=== PATIENT | male | born 1965 | race African-American/Black ===

== ENCOUNTER 2025-06-17 16:25 | Inpatient (IN) | payer MEDICARE, MEDICAID ==
[~2025-06-17] VITALS: Ht 185.4 cm; Wt 139.3 kg
[~2025-06-17 16:25] MED LIST: AMLO10TA80 MT; ASPI-1497 PO; FURO80TA87 MT; LIP40 MT; LOSA50TA41 MT; METF-414 MT; METO-396 MT; MONT-39 MT
[2025-06-17 17:09] LABS: BASOPHILS % 1.1 % (0.0-2.0); EOSINOPHILS % 3.5 % (0.0-5.0); HEMATOCRIT. 37.9 % (42.0-52.0); HEMOGLOBIN. 12.9 g/dL (14.0-18.0); LYMPHOCYTES % 26.3 % (20.0-50.0); MEAN PLATELET VOLUME 9.7 fl (7.4-10.4); MONOCYTES % 9.0 % (2.0-8.0); NEUTROPHILS % 60.1 % (40.0-76.0); PLATELET 152 x1000/uL (130-400); RED BLOOD CELL COUNT 4.15 mill/uL (4.7-6.1); RED CELL DISTRIBUTION WIDTH 14.7 % (11.6-14.6)
[2025-06-17 17:23] LABS: CREATININE 1.6 mg/dL (0.6-1.3); UREA NITROGEN BLOOD 13.0 mg/dL (9-23)
[2025-06-17 18:52] LABS: TROPONIN I HIGH SENSITIVITY 16 ng/L (3.0-53)
[2025-06-17 18:53] LABS: ASPARTATE AMINOTRANSFERASE 37 IU/L (<34); BILIRUBIN DIRECT 0.1 mg/dL (<=3.0); BILIRUBIN TOTAL 0.5 mg/dL (0.1-1.0); INR 0.9; PROTEIN TOTAL 7.8 g/dL (6.0-8.3)
[2025-06-17] MEDS: FUROSEMIDE 40MG/4ML VIAL IVP ONE (19:01)
[2025-06-17] MEDS: ENALAPRIL 2.5MG/2ML VIAL 2ML IV ONE (19:32)
[2025-06-17] MEDS: NITROGLYCERIN 0.4MG TABLET SL SL ONE (19:32)
[2025-06-17] MEDS ORDERED: AZITHROMYCIN 500MG/250ML 250 ML IV SCH (20:00)
[2025-06-17] MEDS ORDERED: CEFTRIAXONE 1GM/50ML 50 ML IV ONE (20:00)
[2025-06-17 20:28] LABS: CLARITY URINE CLEAR (CLEAR); COLOR URINE YELLOW (YELLOW); GLUCOSE URINE NEGATIVE (NEGATIVE); KETONES URINE NEGATIVE (NEGATIVE); LEUKOCYTE ESTERASE URINE NEGATIVE (NEGATIVE); NITRITE URINE NEGATIVE (NEGATIVE); OCCULT BLOOD URINE NEGATIVE (NEGATIVE); PH URINE 6.5 (4.5-8.0); PROTEIN URINE NEGATIVE (NEGATIVE); SPECIFIC GRAVITY URINE 1.006 (1.005-1.030); UROBILINOGEN URINE 0.2 E.U./dL (0.2-1.0)
[2025-06-17] MEDS ORDERED: GUAIFENESIN 200MG/10ML SUGAR FREE UDC PO PRN (20:30)
[2025-06-17] MEDS ORDERED: IPRATROPIUM/ALBUTEROL 0.5-3(2.5)MG/3ML NEB HHN PRN (20:30)
[2025-06-17] MEDS ORDERED: ACETAMINOPHEN 325MG TABLET PO PRN ×2 (20:30)
[2025-06-17] MEDS ORDERED: ONDANSETRON HCL 4MG/2ML INJ IV PRN (20:30)
[2025-06-17] MEDS: HYDRALAZINE 20MG/ML VIAL IV SCH (20:36)
[2025-06-17] MEDS ORDERED: ASPIRIN 81MG TABLET PO NR (21:15)
[2025-06-17 22:00] VITALS: BP 168/94; PULSE 84; RESP 18; TEMP 36.5; O2SAT 99
[2025-06-17] MEDS ORDERED: NITROGLYCERIN 0.4MG TABLET SL SL PRN ×2 (22:15)
[2025-06-17 22:46] VITALS: BP 168/93; PULSE 94; RESP 18; TEMP 36.5292
[2025-06-17] MEDS: AZITHROMYCIN 500MG/250ML 250 ML IV SCH (23:31)
[2025-06-17] MEDS: CEFTRIAXONE 1GM/50ML 50 ML IV SCH (23:32)
[2025-06-18] VITALS (7 sets, daily range): BP systolic 122–170; BP diastolic 78–105; PULSE 74–88; RESP 16–18; TEMP 36.6–36.9; O2SAT 95–100
[2025-06-18] MEDS: CEFTRIAXONE 1GM/50ML 50 ML IV NR
[2025-06-18] MEDS: ASPIRIN 81MG TABLET PO SCH ×2 (00:13→14:19)
[2025-06-18 00:31] LABS: TROPONIN I HIGH SENSITIVITY 18 ng/L (3.0-53)
[2025-06-18 02:50] LABS: *AMPHETAMINES SCREEN URINE NEGATIVE (NEGATIVE); *BARBITURATES SCREEN URINE NEGATIVE (NEGATIVE); *BENZODIAZEPINES SCREEN URINE NEGATIVE (NEGATIVE); *COCAINE SCREEN URINE NEGATIVE (NEGATIVE); CANNABINOID URINE SCREEN PRESUMPTIVE POSITIVE (NEGATIVE); METHADONE URINE SCREEN NEGATIVE (NEGATIVE); OPIATES URINE SCREEN NEGATIVE (NEGATIVE); PHENCYCLIDINE URINE SCREEN NEGATIVE (NEGATIVE)
[2025-06-18 02:51] LABS: ECSTASY MDMA SCREEN URINE NEGATIVE (NEGATIVE)
[2025-06-18] MEDS: ENOXAPARIN 40MG/0.4ML SYR SUBCUT SCH (09:00)
[2025-06-18] MEDS: PANTOPRAZOLE SODIUM 40 MG/VIAL IV SCH (09:06)
[2025-06-18] MEDS: FUROSEMIDE 40MG/4ML VIAL IVP SCH ×2 (09:06→16:29)
[2025-06-18] MEDS: LOSARTAN 50 MG TABLET PO SCH (09:07)
[2025-06-18] MEDS: AMLODIPINE 10MG TABLET PO SCH (09:07)
[2025-06-18 11:31] LABS: BG BASE EXCESS -0.2 mmol/L (-2.0-3.0); BG CARBOXYHEMOGLOBIN 1.6 % (0.5-1.5); BG DEOXYHEMOGLOBIN 6.5 % (0.0-5.0); BG FRACTION INSPIRED OXYGEN 21; BG HCO3 ACT 21.8 mmol/L (21.0-28.0); BG METHEMOGLOBIN 0.0 % (0.5-1.5); BG OXYGEN SATURATION 93.4 % (94.0-98.0); BG OXYHEMOGLOBIN 91.9 % (94.0-98.0); BG PCO2 28.7 mmHg (35.0-48.0); BG PH 7.499 (7.350-7.450); BG PO2 67.7 mmHg (83.0-108.0); BG SAMPLE SITE RIGHT BRACHIAL; BG TOTAL HEMOGLOBIN 13.9 g/dL (13.5-17.5); BG VENT MODE ROOM AIR
[2025-06-18 13:38] LABS: HEMATOCRIT. 40.1 % (42.0-52.0); HEMOGLOBIN. 13.5 g/dL (14.0-18.0); MEAN PLATELET VOLUME 10.0 fl (7.4-10.4); PLATELET 143 x1000/uL (130-400); RED BLOOD CELL COUNT 4.41 mill/uL (4.7-6.1); RED CELL DISTRIBUTION WIDTH 14.9 % (11.6-14.6)
[2025-06-18 13:57] LABS: CREATININE 1.6 mg/dL (0.6-1.3); TRIGLYCERIDE 189.0 mg/dL (0-150); TROPONIN I HIGH SENSITIVITY 18.0 ng/L (3.0-53); UREA NITROGEN BLOOD 12.0 mg/dL (9-23)
[2025-06-18 13:58] LABS: LDL CHOLESTEROL 125.0 mg/dL (5-100)
[2025-06-18 14:01] LABS: T4 FREE 1.35 ng/dL (0.89-1.76)
[2025-06-18 15:50] LABS: EOSINOPHILS % MANUAL 3.0 % (0.0-5.0); LYMPHOCYTES % MANUAL 17.0 % (20.0-50.0); MONOCYTES % MANUAL 7.0 % (2.0-8.0); NEUTROPHILS % MANUAL 73.0 % (45.0-75.0); PLATELET ESTIMATE NORMAL
[2025-06-18] MEDS: AZITHROMYCIN 500MG/250ML 250 ML IV SCH (16:29)
[2025-06-18] MEDS: ATORVASTATIN CALCIUM 40MG TABLET PO SCH (20:08)
[2025-06-18] MEDS: HYDRALAZINE 20MG/ML VIAL IV SCH (20:09)
[2025-06-18] MEDS: CEFTRIAXONE 1GM/50ML 50 ML IV SCH (20:09)
[2025-06-18] MEDS: HYDRALAZINE 20MG/ML VIAL IV PRN (23:32)
[2025-06-19 00:21] LABS: ASPARTATE AMINOTRANSFERASE 35 IU/L (<34); BILIRUBIN DIRECT 0.2 mg/dL (<=3.0); BILIRUBIN TOTAL 0.8 mg/dL (0.1-1.0); PROTEIN TOTAL 7.9 g/dL (6.0-8.3)
[2025-06-19 04:00] VITALS: BP 119/77; PULSE 87; RESP 18; TEMP 36.6; O2SAT 97
[2025-06-19 08:01] VITALS: BP 157/98; PULSE 88; RESP 18; TEMP 36.4; O2SAT 98
[2025-06-19] MEDS ORDERED: IPRATROPIUM/ALBUTEROL 0.5-3(2.5)MG/3ML NEB HHN SCH (10:30)
[2025-06-19 12:01] VITALS: BP 151/93; PULSE 87; RESP 18; TEMP 36.6; O2SAT 99
[2025-06-19] MEDS: CLONIDINE 0.2MG TABLET PO SCH (13:04)
[2025-06-19] MEDS: IPRATROPIUM/ALBUTEROL 0.5-3(2.5)MG/3ML NEB HHN SCH (14:43)
[2025-06-19 16:00] VITALS: BP 138/90; PULSE 82; RESP 20; TEMP 36.6; O2SAT 96
[2025-06-19 20:00] VITALS: BP 111/81; PULSE 70; RESP 20; TEMP 36.6; O2SAT 93
[2025-06-19 22:00] VITALS: PULSE 75; RESP 15; O2SAT 98
[2025-06-20] VITALS (8 sets, daily range): BP systolic 127–138; BP diastolic 79–88; PULSE 72–81; RESP 16–20; TEMP 36.3–36.4; O2SAT 94–98
[2025-06-20 07:45] LABS: PLATELET 146 x1000/uL (130-400); RED BLOOD CELL COUNT 4.33 mill/uL (4.7-6.1); RED CELL DISTRIBUTION WIDTH 14.6 % (11.6-14.6)
[2025-06-20 08:06] LABS: CREATININE 1.4 mg/dL (0.6-1.3)
[2025-06-20 08:07] LABS: UREA NITROGEN BLOOD 14 mg/dL (9-23)
[2025-06-20 08:09] LABS: PHOSPHORUS 3.0 mg/dL (2.5-4.9)
[2025-06-20] MEDS: AZITHROMYCIN 500 MG TABLET PO SCH (08:21)
[2025-06-20] MEDS: DOCUSATE SODIUM 100MG CAPSULE PO PRN (08:21)
[2025-06-20] MEDS ORDERED: LOSA1TAB34 PO (13:55)
[2025-06-20] MEDS ORDERED: ATOR-2 PO (13:55)
[2025-06-20] MEDS ORDERED: ASPI-1406 PO (13:55)
[2025-06-20] MEDS ORDERED: FURO80TA87 PO (13:55)
[2025-06-20] MEDS ORDERED: AMLO10TA80 PO (13:55)
[2025-06-20] MEDS ORDERED: METF-907 PO (14:20)
== END 2025-06-20 16:43 | disposition home health service (06) | DRG 291 ==
LOC: ER 16:25 → EDBEDREQTM 19:40 → EDBEDREQ 19:40 → ENRESERV 20:05 → 8WST 22:38
PROVIDERS: ADMIT Internal Medicine; ATTEND Internal Medicine
DX: I11.0 Hypertensive heart disease with heart failure (principal); I50.43 Acute on chronic combined systolic (congestive) and diastolic (congestive) heart failure; J18.9 Pneumonia, unspecified organism; J96.01 Acute respiratory failure with hypoxia; I16.1 Hypertensive emergency; N17.9 Acute kidney failure, unspecified; E11.9 Type 2 diabetes mellitus without complications; I25.10 Atherosclerotic heart disease of native coronary artery without angina pectoris; J44.89 Other specified chronic obstructive pulmonary disease; Z91.148 Patient's other noncompliance with medication regimen for other reason; Z95.5 Presence of coronary angioplasty implant and graft
CPT/HCPCS: 36415; 36600; 71045; 76770; 80048; 80061; 80076; 80305; 81003; 82375; 82550; 82805; 82962; 83605; 83735; 83880; 84100; 84145; 84439; 84443; 84484; 85025; 85027; 85379; 85651; 86141; 87070; 93005; 93306; 93923; 93970; 94070; 94640; 94664; 98960; 99285; A4606; J0360; J0456; J0696; J1650; J1938; J2470; J3490